=== PATIENT | female | born 2000 | race Caucasian/White ===

== ENCOUNTER 2025-07-14 11:51 | Emergency (ER) | payer SELFPAY ==
[2025-07-14 12:00] VITALS: BP 113/71; PULSE 75; TEMP 36.6; O2SAT 98; BMI 15.4
--- NOTE | 2025-07-14 12:06 | PC.NURSE ---
pts mother states concern or spina bifida runs in family has dimples on lower back and urinary problems throughout life
[2025-07-14 12:49] LABS: Hematocrit 38.9 % (36.0-48.0); Hemoglobin 13.3 g/dL (12.0-16.0); Immature Granulocytes Abs Auto 0.01 10^3/uL (0.00-0.03); Immature Granulocytes Pct Auto 0.2 % (0.0-0.5); Lymphocytes Absolute Auto 1.0 10^3/uL (1.2-3.8); Mean Corpuscular HGB Conc 34.2 g/dL (29.9-35.2); Mean Corpuscular Hemoglobin 30.8 pg (26.7-34.0); Mean Corpuscular Volume 90.0 fL (81.0-99.0); Platelet Count 232 10^3/uL (150-450); Red Blood Count 4.32 10^6/uL (4.20-5.40); White Blood Count 5.2 10^3/uL (4.0-11.0)
[2025-07-14 13:04] LABS: Alanine Aminotransferase 18 U/L (14-59); Albumin Globulin Ratio 1.2; Albumin Level 4.2 g/dL (3.4-5.0); Alkaline Phosphatase 83 U/L (46-116); Anion Gap 13.0; Aspartate Amino Transferase 15 U/L (15-37); Blood Urea Nitrogen 10.0 mg/dL (7.0-18.0); Calcium 9.2 mg/dL (8.5-10.1); Carbon Dioxide 24.1 mmol/L (21.0-32.0); Chloride 106 mmol/L (98-107); Estimated GFR (African America >60 (>=60 mL/min/1.73m^2); Estimated GFR (Non-African Ame >60 (>=60 mL/min/1.73m^2); Globulin 3.6 g/dL; Glucose 83 mg/dL (74-106); Potassium 4.1 mmol/L (3.5-5.1); Sodium 139 mmol/L (136-145); Total Protein 7.8 g/dL (6.4-8.2)
[2025-07-14] MEDS: KETOROLAC TROMETHAMINE 30 MG/ML VIAL 15 MG IVP (13:47)
[2025-07-14 14:57] LABS: Glucose Urine UA NEGATIVE (NEGATIVE)
[2025-07-14 15:06] LABS: Cast Seen? NONE SEEN #/LPF (NONE SEEN); Crystals Seen? None Seen #/HPF (None Seen); Urine Culture Indicated YES-FRMC
[2025-07-14 15:48] VITALS: BP 99/66; PULSE 58; O2SAT 97
--- NOTE | 2025-07-14 18:00 | ED_ITS ---
HPI - Female Genitourinary General Chief complaint: Back Pain/Injury Stated complaint: BACK PAIN, VAGINAL PAIN Time Seen by Provider: 07/14/25 12:09 Source: patient Mode of arrival: walk-in Limitations: no limitations History of Present Illness HPI Narrative: The patient 24-year-old female is coming to the ER with a 3 vaginal rash in addition to back pain, patient sexually active but she mentioned that she have a new partner but they have been using protection, patient denies any vaginal discharge nausea vomiting or any other concerns she is complaining of a lot of pain in the area, no fever no chills no abdominal pain no nausea or vomiting Related Data Previous Rx's ?Medication ?Instructions ?Recorded acyclovir 800 mg tablet 800 mg PO Q12H #10 tabs 06/29 04/22 nitrofurantoin 100 mg PO BID 7 days #14 cap s 07/14/25 monohydrate/macrocrystals 100 mg capsule (Macrobid) Allergies Allergy/AdvReac Type Severity Reaction Status Date / Time amoxicillin Allergy Rash Verified 07/14/25 12:05 ondansetron (From Zofran) Allergy Rash Verified 07/14/25 12:05 Review of Systems ROS Status of ROS 10 or more systems reviewed and unremark able except as noted in history and below Exam Narrative Exam Narrative: Nurses notes and vital signs reviewed and patient is not hypoxic. General: Well-appearing and in no apparent distress. Skin: Warm, dry, no pallor noted. No rash. Head: Normocephalic, atraumatic. Neck: Supple, non-tender. Eye: Pupils are equal, round and EOMI. No scleral icterus. Ears, Nose, Mouth, and Throat: TM are clear, no nasal mucosal hypertrophy. Oral mucosa is moist, no posterior oropharynx erythema, uvula is mid-line Cardiovascular: Regular Rate and Rhythm without murmur, gallop or rub. Respiratory: No accessory muscle use or respiratory distress. Lungs are clear to auscultation, no wheezing, rales or rhonchi Chest Wall: no tenderness Back: There is paraspinal muscle tenderness at the upper back mostly toward the scapular area there is no intervertebral line tenderness and the patient have no ecchymosis or any signs of trauma Musculoskeletal: normal ROM, no calf or popliteal tenderness, no lower extremity edema/swelling GI: Abdomen is soft, non-distended. Normal bowel sounds. No masses appreciated. No tenderness to palpation. No rebound, guarding, or rigidity noted. Perineal examination showed that the patient have almost perivaginal rash that is mostly vesicular and tender Neurological: A&O x4. No cranial nerve dysfunction observed. No truncal ataxi a. Moves all extremities. Sensation intact. Psychiatric: Cooperative and interactive. Normal mood and affect. Constitutional Vital Signs, click to edit/add: Last Vital Signs Temp 97.8 F 07/14/25 12:00 Pulse 58 L 07/14/25 15:48 Resp 16 07/14/25 15:48 BP 99/66 07/14/25 15:48 Pulse Ox 97 07/14/25 15:48 O2 Del Method Room Air 07/14/25 15:48 Course Vital Signs Vital signs: Vital Signs Temperature 97.8 F 07/14/25 12:00 Pulse Rate 75 07/14/25 12:00 Respiratory Rate 14 07/14/25 12:00 Blood Pressure 113/71 07/14/25 12:00 Pulse Oximetry 98 07/14/25 12:00 Temperature 97.8 F 07/14/25 12:00 Pulse Rate 58 L 07/14/25 15:48 Respiratory Rate 16 07/14/25 15:48 Blood Pressure 99/66 07/14/25 15:48 Pulse Oximetry 97 07/14/25 15:48 Oxygen Delivery Method Room Air 07/14/25 15:48 MDM - Female Genitourinary MDM Narrative Medical decision making narrative: The patient rash is mostly herpes genitalis The patient had a swab culture to the lesions Patient CBC and chemistry showed no acute pathology urine and shows possible UTI and the patient have a history of urinary symptoms The patient was covered with Keflex as well as acyclovir after explained to her that high suspicion of herpes genitalis in addition to the fact that she need to be tested by her primary care doctor for syphilis and HIV annually due to the fact that she is sexually active The patient to come back in case any fever chills or any increasing pain she is to cover the pain with NSAID right now In case of any progression of the lesion the patient to come back to the ER Regarding the patient pain in the back that is mostly muscular pain The patient is to follow up with primary care physician in next 2-3 days or to return to the emergency department should any of the signs or symptoms worsen or new symptoms develop. The patient agrees with the following Diagnosis and Treatment plan and the patient will be discharged home. Lab Data Labs: Lab Results 07/14/25 07/14/25 Range/Units 12:30 14:49 WBC 5.2 (4.0-11.0) 10^3/uL RBC 4.32 (4.20-5.40) 10^6/uL Hgb 13.3 (12.0-16.0) g/dL Hct 38.9 (36.0-48.0) % MCV 90.0 (81.0-99.0) fL MCH 30.8 (26.7-34.0) pg MCHC 34.2 (29.9-35.2) g/dL RDW 12.4 (11.0-15.0) % Plt Count 232 (150-450) 10^3/uL MPV 11.3 (9.5-13.5) fL Neut % (Auto) 68.7 (43.0-75.0) % Lymph % (Auto) 18.3 L (20.5-60.0) % [place] % (Auto) 11.8 (1.7-12.0) % Eos % (Auto) 0.4 L (0.9-7.0) % Baso % (Auto) 0.6 (0.2-2.0) % Neut # (Auto) 3.6 (1.4-6.5) 10^3/uL Lymph # (Auto) 1.0 L (1.2-3.8) 10^3/uL [place] # (Auto) 0.6 (0.3-0.8) 10^3/uL Eos # (Auto) 0.0 (0.0-0.7) 10^3/uL Baso # (Auto) 0.0 (0.0-0.1) 10^3/uL Abs Immat Gran (auto) 0.01 (0.00-0.03) 10^3/uL Imm/Tot Granulo (auto) 0.2 (0.0-0.5) % Sodium 139 (136-145) mmol/L Potassium 4.1 (3.5-5.1) mmol/L Chloride 106 (98-107) mmol/L Carbon Dioxide 24.1 (21.0-32.0) mmol/L Anion Gap 13.0 BUN 10.0 (7.0-18.0) mg/dL Creatinine 0.70 (0.55-1.02) mg/dL Est GFR ( Amer) >60 (>=60 mL/min/1.73m^2) Est GFR (Non-Af Amer) >60 (>=60 mL/min/1.73m^2) BUN/Creatinine Ratio 14.3 Glucose 83 (74-106) mg/dL Calcium 9.2 (8.5-10.1) mg/dL Total Bilirubin 0.6 (0.2-1.0) mg/dL AST 15 (15-37) U/L ALT 18 (14-59) U/L Alkaline Phosphatase 83 (46-116) U/L Total Protein 7.8 (6.4-8.2) g/dL Albumin 4.2 (3.4-5.0) g/dL Globulin 3.6 g/dL Albumin/Globulin Ratio 1.2 Serum HCG, Qual Negative (NEGATIVE) Urine Color Lt. yellow (YELLOW) Urine Clarity Slightly cloudy A (CLEAR) Urine pH 6.5 (5.0-9.0) Ur Specific [place] 1.020 (1.005-1.025) Urine Protein 30 A (NEG/TRACE) mg/dL Urine Glucose (UA) Negative (NEGATIVE) mg/dL Urine Ketones Negative (NEGATIVE) mg/dL Urine Occult Blood Trace-i (NEGATIVE) Urine Nitrite Positive A (NEGATIVE) Urine Bilirubin Negative (NEGATIVE) Urine Urobilinogen 1.0 (0.2-1.0) EU/dL Ur Leukocyte Esterase Moderate A (NEGATIVE) Urine RBC 2-5 A (0-2) #/HPF Urine WBC 10-20 A (NONE SEEN) #/HPF Ur Squamous Epith Cells Moderate A (NONE/RARE) #/LPF Urine Crystals None seen (None Seen) #/HPF Urine Bacteria Moderate A (NONE SEEN) #/HPF Urine Casts None seen (NONE SEEN) #/LPF Urine Mucus None seen (NONE SEEN) Ur Culture Indicated[place] [place] Discharge Chief Complaint: Back Pain/Injury Clinical Impression: Herpes genitalis, UTI (urinary tract infection) Patient Disposition: Home, Self-Care Time of Disposition Decision: 15:34 Condition: Good Prescriptions / Home Meds: New nitrofurantoin monohyd/m-cryst [Macrobid] 100 mg capsule 100 mg PO BID 7 Days Qty: 14 0RF Rx Instructions: must administer with a meal/food acyclovir 800 mg tablet 800 mg PO Q12H Qty: 10 0RF Print Language: [place]i Instructions: Genital Herpes Infection (ED), Sexually Transmitted Diseases (ED), Urinary Tract Infection in Women (DC) Referrals: BRITNEY GO [Primary Care Provider] - 1 week Discharge Date/Time: 07/14/25 15:50
[2025-07-15 20:08] LABS: Neisseria gonorrhoeae, NAA Negative (Negative)
== END 2025-07-14 15:50 | disposition home or self-care (01) ==
PROVIDERS: Emergency Provider Emergency Medicine
DX: B00.9 Herpesviral infection, unspecified (principal); N39.0 Urinary tract infection, site not specified; A60.00 Herpesviral infection of urogenital system, unspecified
CPT/HCPCS: 36415; 80053; 81001; 84703; 85025; 87086; 87088; 87186; 87255; 87491; 87591; 96374; 99285; J1885